=== PATIENT | female | born 1945 | race Caucasian/White ===

== ENCOUNTER 2020-01-04 12:45 | Emergency (ER) | payer MEDICARE, OTHER ==
[~2020-01-04] VITALS: Ht 162.5 cm; Wt 44.5 kg
--- NOTE | 2020-01-04 14:11 | ED Lower Extremity ---
General Chief Complaint: Lower Extremity Stated Complaint: L LEG PAIN Nursing Triage Note: PT TO TRIAGE BY WHEELCHAIR WITH COMPLAINT OF LEFT LEG PAIN. STATES SLIPPED DOWN STEPS ON SATURDAY. Nursing Sepsis Screen: No Definite Risk Source: patient Exam Limitations: no limitations History of Present Illness Date Seen by Provider: Jan 04, 2020 Time Seen by Provider: 14:09 Initial Comments To ER by wheelchair with complaints of left knee pain. This began on Saturday 3 days ago when she was going up her stairs, she began to fall and twisted. She had a popping sensation in her left leg, she has difficulty with fully extending the leg because of pain and swelling to the posterior calf just behind and below the knee joint, also has pain with bearing weight on the knee itself. She takes ibuprofen 600 mg 3 times a day every day for her chronic aches and pains. She smokes heavily. She informs me she does not want surgery even if it's broken. Onset: just prior to arrival Severity: moderate Pain/Injury Location: left knee Method of Injury: unknown Modifying Factors: Improves With Movement Allergies and Home Medications Allergies Coded Allergies: No Known Drug Allergies (Unverified , 01/04/20) Home Medications Tramadol HCl 50 Mg Tablet, 50 MG PO Q6H PRN for PAIN-MODERATE (5-7) Prescribed by: RAFA BATEMAN on 01/04/20 0248 Patient Home Medication List Home Medication List Reviewed: Yes Review of Systems Constitutional: see HPI EENTM: see HPI Respiratory: no symptoms reported Cardiovascular: no symptoms reported Genitourinary: no symptoms reported Musculoskeletal: see HPI Skin: no symptoms reported Psychiatric/Neurological: No Symptoms Reported Past Pektrsi-Pbfsbl-Yegitu Hx Patient Social History Alcohol Use: Past History Recreational Drug Use: No Smoking Status: Current Everyday Smoker Type Used: Cigarettes Recent Foreign Travel: No Contact w/Someone Who Travel: No Recent Infectious Disease Expo: No Recent Hopitalizations: No Immunizations Up To Date PED Vaccines UTD: Yes Seasonal Allergies Seasonal Allergies: No Past Medical History Surgeries: No Respiratory: No Neurological: No Genitourinary: No Gastrointestinal: No Musculoskeletal: Yes Chronic Back Pain Endocrine: No HEENT: No Cancer: No Psychosocial: No Integumentary: No Blood Disorders: No Physical Exam Vital Signs Vital Signs - First Documented 01/04/20 13:29 Temp 36.0 Pulse 93 Resp 20 B/P (MAP) 123/52 (75) Pulse Ox 95 O2 Delivery Room Air Capillary Refill : Less Than 3 Seconds Height, Weight, BMI Height: '" Weight: lbs. oz. kg; 16.00 BMI Method: General Appearance: WD/WN, no apparent distress HEENT: PERRL/EOMI, normal ENT inspection Respiratory: no respiratory distress, no accessory muscle use Hips: bilateral hip non-tender, bilateral hip normal inspection, bilateral hip normal range of motion Legs: left leg pain, left leg swelling (ecchymosis left calf with swelling left calf. Difficulty fully extending the leg at the knee.) Knees: bilateral knee non-tender, bilateral knee normal inspection, bilateral knee normal range of motion Ankles: bilateral ankle non-tender, bilateral ankle normal inspection, bilateral ankle normal range of motion Feet: bilateral foot non-tender, bilateral foot normal inspection, bilateral foot normal range of motion Neurologic/Psychiatric: alert, normal mood/affect, oriented x 3 Skin: normal color, warm/dry Progress/Results/Core Measures Results/Orders My Orders Orders - RAFA BATEMAN APRN Tibia/Fibula, Left, 2 Views (01/04/20 13:39) Knee, Left, 3 Views (01/04/20 13:39) Us Venous Lower Ext Lt (01/04/20 14:02) Tramadol Tablet (Ultram Tablet) (01/04/20 14:15) Medications Given in ED Current Medications Medications Dose Ordered Sig/Lexy Route Start Time Stop Time Status Last Admin Dose Admin Tramadol HCl 50 mg ONCE ONCE PO 01/04/20 14:15 01/04/20 14:16 DC 01/04/20 14:35 50 MG Vital Signs/I&O 01/04/20 13:29 Temp 36.0 Pulse 93 Resp 20 B/P (MAP) 123/52 (75) Pulse Ox 95 O2 Delivery Room Air Blood Pressure Mean: 75 Departure Communication (Admissions) Would suspect a gastrocnemius tear given the popping sensation, pain behind the knee and subsequent bruising, down the leg. Impression Primary Impression: Gastrocnemius tear Qualified Codes: S86.112A - Strain of other muscle(s) and tendon(s) of posterior muscle group at lower leg level, left leg, initial encounter Disposition: 01 HOME, SELF-CARE Condition: Stable Departure-Patient Inst. Decision time for Depature: 15:17 Patient Instructions: Muscle Strain Add. Discharge Instructions: 1. Ice packs to the area 2. Pain medication as directed 3. Follow-up with your doctor next week 4. All discharge instructions reviewed with patient and/or family. Voiced understanding. Scripts Tramadol HCl (Ultram) 50 Mg Tablet 50 MG PO Q6H PRN for PAIN-MODERATE (5-7), #20 TAB Prov: RAFA BATEMAN APRN 01/04/20 RAFA BATEMAN APRN Jan 04, 2020 14:11
[2020-01-04 14:56] VITALS: BP 123/52
[2020-01-04] MEDS ORDERED: TRAM-42 PO (15:18)
--- NOTE | 2020-01-04 15:19 | Diagnostic Imaging Report ---
PROCEDURE: US left lower extremity venous. TECHNIQUE: Multiple real-time grayscale images were obtained over the left lower extremity in various projections. Additional duplex Doppler and color Doppler images were also obtained. INDICATION: Pain and swelling. FINDINGS: The left common femoral, superficial femoral, popliteal veins and tibial veins demonstrate normal response to compression, augmentation, and Valsalva. There are no abnormal left lower extremity fluid collections or masses. IMPRESSION: No evidence of deep venous thrombosis in the left lower extremity. Dictated by: Dictated on workstation # [id number]
--- NOTE | 2020-01-04 15:27 | Diagnostic Imaging Report ---
INDICATION: Left knee pain post fall. AP, oblique, and lateral views of the left knee are obtained. No acute fracture or acute bony abnormality is seen. There is minimal medial joint space narrowing. There is a joint effusion in the suprapatellar recess. IMPRESSION: No acute fracture visualized. A joint effusion is present. There is minimal degenerative change in the medial compartment. Dictated by: Dictated on workstation # [id number]
--- NOTE | 2020-01-04 15:36 | Diagnostic Imaging Report ---
INDICATION: Left leg pain post injury. AP and lateral views of the left tibia and fibula are performed. No fracture or acute bony abnormality is seen. Joint effusion is noted in the left knee in the suprapatellar region. IMPRESSION: No acute fracture. Left knee joint effusion. Dictated by: Dictated on workstation # [id number]
--- OUTSIDE RECORDS SUMMARY | 2020-01-13 01:29 | XMS REPORT ---
Author Author Arianna Nieves Doctor Organization [facility] Address Unknown Phone Unavailable Care Team Providers Care Entry Level Automotive Technician Name Role Phone Migration, Doctor Unavailable Unavailable PROBLEMS Type Condition ICD9-CM Code [id number] Code Onset Dates Condition S tatus SNOMED Code Problem COPD exacerbation J44.1 Active 19 [id number] ALLERGIES No Information ENCOUNTERS Encounter Location Date Diagnosis [facility] [address] [id number] [id number] Dec, [facility] [address] [id number] [id number] Dec, COPD exacerbation J44.1 ; Tobacco abuse Z72.0 and Tobacco abuse counseling Z71.6 [facility] [address] [id number] [address] [place] [phone] Feb, [facility] [address] [id number] [address] [place] [phone] Feb, [facility] [address] [id number] [address] [place] [phone] May, [facility] [address] [id number] [address] [place] [phone] Jan, [facility] [address] [id number] [address] [place] [phone] Dec, [facility] [address] [id number] [address] [place] [phone] Nov, [facility] [address] [id number] [address] [place] [phone] Oct, [facility] [address] [id number] [address] [place] [phone] Oct, [facility] [address] [id number] [address] [place] [phone] Oct, [facility] [address] [id number] [address] [place] [phone] Oct, [facility] [address] [id number] [address] [place] [phone] Sep, [facility] [address] [id number] [address] [place] [phone] Sep, [facility] [address] [id number] [address] [place] [phone] Sep, IMMUNIZATIONS No Known Immunizations SOCIAL HISTORY Never Assessed REASON FOR VISIT [place] [place] CARE VITAL SIGNS MEDICATIONS Unknown Medications RESULTS No Results PROCEDURES No Known procedures INSTRUCTIONS MEDICATIONS ADMINISTERED No Known Medications
--- OUTSIDE RECORDS SUMMARY | 2020-01-13 01:29 | XMS REPORT ---
Author Author Arianna DURBIN [facility] Address [address] [place] [address] Care Team Providers Care Production Control Coordinator Name Role Phone ACOSTA DURBIN Unavailable PROBLEMS Type Condition ICD9-CM Code VTQ22-HC Code Onset Dates Condition S tatus SNOMED Code Problem COPD exacerbation J44.1 Active 19 [id number] ALLERGIES No Known Allergies SOCIAL HISTORY Never Assessed PLAN OF CARE Activity Details Follow Up 2 - 3 Days Reason:if s/s are not improving VITAL SIGNS Height 64 in 2017-01-15 Weight 99 lbs 2017-01-15 Temperature 96.5 degrees Fahrenheit 2017-01-15 Heart Rate 81 bpm 2017-01-15 Respiratory Rate 18 2017-01-15 Oximetry 94 % 2017-01-15 BMI 16.99 kg/m2 2017-01-15 Blood pressure systolic 138 mmHg 2017-01-15 Blood pressure diastolic 78 mmHg 2017-01-15 MEDICATIONS Medication Instructions Dosage Frequency Start Date End Date Duration S tatus PredniSONE 20 mg Orally Once a day 2 tablet 24h Dec, Dec, 05 days Active ProAir HFA 108 (90 Base) MCG/ACT Inhalation every 4 hrs 2 puffs as needed 4h Dec, Active Doxycycline Monohydrate 100 mg Orally every 12 hrs 1 tablet 12h Dec, Jan, 10 days Active RESULTS No Results PROCEDURES Procedure Date Ordered Result Body Site MEASURE BLOOD OXYGEN LEVEL Jan 15, 2017 IMMUNIZATIONS No Known Immunizations
--- OUTSIDE RECORDS SUMMARY | 2020-01-13 01:29 | XMS REPORT ---
Author Author Arianna Nieves Doctor Organization [facility] Address Unknown Phone Unavailable Care Team Providers Care Milk Tanker Driver Name Role Phone Migration, Doctor Unavailable Unavailable PROBLEMS Type Condition ICD9-CM Code KEF94-WN Code Onset Dates Condition S tatus SNOMED Code Problem COPD exacerbation J44.1 Active 19 [id number] ALLERGIES No Information ENCOUNTERS Encounter Location Date Diagnosis [facility] [address] [id number] [id number] Dec, [facility] [address] [id number] [id number] Dec, COPD exacerbation J44.1 ; Tobacco abuse Z72.0 and Tobacco abuse counseling Z71.6 [facility] [address] [id number] [address] [place] [phone] Feb, [facility] [address] [facility] [id number] [address] [place] [phone] Feb, [facility] [address] [facility] [id number] [address] [place] [phone] May, [facility] [address] [facility] [id number] [address] [place] [phone] Jan, [facility] [address] [id number] [address] [place] [phone] Dec, [facility] [address] [id number] [address] [place] [phone] Nov, [facility] [address] [id number] [address] [place] [phone] Oct, [facility] [address] [facility] [id number] [address] [place] [phone] Oct, [facility] [address] [id number] [address] [place] [phone] Oct, [facility] [address] [facility] [id number] [address] [place] [phone] Oct, [facility] [address] [facility] [id number] [address] [place] [phone] Sep, [facility] [address] [facility] [id number] [address] [place] [phone] Sep, [facility] [address] [facility] [id number] [address] [place] [phone] Sep, IMMUNIZATIONS No Known Immunizations SOCIAL HISTORY Never Assessed REASON FOR VISIT EMR-[facility] [place] PLAN OF CARE VITAL SIGNS MEDICATIONS Medication Instructions Dosage Frequency Start Date End Date Duration S tatus amitriptyline 25 mg 1 tablet by Oral route 1 time per daytake before bed Jan, Active PredniSONE 20 mg 2 tablet by Oral rou te 1 time per day for 5 day(s)Take 2 tablets daily for 5 days, then 1 tablet daily for 5 days. Jan, 012 Active RESULTS No Results PROCEDURES No Known procedures INSTRUCTIONS MEDICATIONS ADMINISTERED No Known Medications
--- OUTSIDE RECORDS SUMMARY | 2020-01-13 01:29 | XMS REPORT ---
Author Author Arianna Nieves Doctor Organization [facility] Address Unknown Phone Unavailable Care Team Providers Care Family Day Care Provider Name Role Phone Migration, Doctor Unavailable Unavailable PROBLEMS Type Condition ICD9-CM Code [id number] Code Onset Dates Condition S tatus SNOMED Code Problem COPD exacerbation J44.1 Active 19 [id number] ALLERGIES No Information ENCOUNTERS Encounter Location Date Diagnosis [facility] [address] [id number] [id number] Dec, [facility] [address] [id number] [id number] Dec, COPD exacerbation J44.1 ; Tobacco abuse Z72.0 and Tobacco abuse counseling Z71.6 [facility] [address] [id number] [address] [place] [phone] Feb, [facility] [address] [facility] [id number] [address] [place] [phone] Feb, [facility] [address] [facility] [id number] [address] [place] [phone] May, [facility] [address] [facility] [id number] [address] [place] [phone] Jan, [facility] [address] [id number] [address] [place] [phone] Dec, [facility] [address] [id number] [address] [place] [phone] Nov, [facility] [address] [id number] [address] [place] [phone] Oct, [facility] [address] [facility] [id number] [address] [place] [phone] Oct, [facility] [address] [id number] [address] [place] [phone] Oct, [facility] [address] [facility] [id number] [address] [place] [phone] Oct, [facility] [address] [facility] [id number] [address] [place] [phone] Sep, [facility] [address] [facility] [id number] [address] [place] [phone] Sep, [facility] [address] [facility] [id number] [address] [place] [phone] Sep, IMMUNIZATIONS No Known Immunizations SOCIAL HISTORY Never Assessed REASON FOR VISIT E[place] [place] PLAN OF CARE VITAL SIGNS MEDICATIONS Unknown Medications RESULTS No Results PROCEDURES No Known procedures INSTRUCTIONS MEDICATIONS ADMINISTERED No Known Medications
--- OUTSIDE RECORDS SUMMARY | 2020-01-13 01:29 | XMS REPORT ---
Author Author Arianna Nieves Doctor Organization [facility] Address Unknown Phone Unavailable Care Team Providers Care Desk Manager Name Role Phone Migration, Doctor Unavailable Unavailable PROBLEMS Type Condition ICD9-CM Code [id number] Code Onset Dates Condition S tatus SNOMED Code Problem COPD exacerbation J44.1 Active 19 [id number] ALLERGIES No Information ENCOUNTERS Encounter Location Date Diagnosis [facility] [address] [id number] [id number] Dec, [facility] [address] [id number] [id number] Dec, COPD exacerbation J44.1 ; Tobacco abuse Z72.0 and Tobacco abuse counseling Z71.6 [facility] [address] [id number] [address] [place] [phone] Feb, [facility] [address] [facility] [id number] [address] [place] [phone] Feb, [facility] [address] [facility] [id number] [address] [place] [phone] May, [facility] [address] [facility] [id number] [address] [place] [phone] Jan, [facility] [address] [id number] [address] [place] [phone] Dec, [facility] [address] [id number] [address] [place] [phone] Nov, [facility] [address] [id number] [address] [place] [phone] Oct, [facility] [address] [facility] [id number] [address] [place] [phone] Oct, [facility] [address] [id number] [address] [place] [phone] Oct, [facility] [address] [facility] [id number] [address] [place] [phone] Oct, [facility] [address] [facility] [id number] [address] [place] [phone] Sep, [facility] [address] [facility] [id number] [address] [place] [phone] Sep, [facility] [address] [facility] [id number] [address] [place] [phone] Sep, IMMUNIZATIONS No Known Immunizations SOCIAL HISTORY Never Assessed REASON FOR VISIT EMR-[facility] PLAN OF CARE VITAL SIGNS MEDICATIONS Unknown Medications RESULTS No Results PROCEDURES No Known procedures INSTRUCTIONS MEDICATIONS ADMINISTERED No Known Medications
--- OUTSIDE RECORDS SUMMARY | 2020-01-13 01:30 | XMS REPORT | Continuity of Care Document ---
Author Organization Unknown Address Unknown Phone Unavailable Allergies Active Description Code Type Severity Reaction Onset Reported/Identified Relationship to Patient Clinical Status Yes No Known Drug Allergies [id number] Drug Allergy Unknown N/A 01/04/2020 Medications There is no data. Problems Date Dx Coded Attending Type Code Diagnosis Diagnosed By 01/04/2020 RAFA BATEMAN APRN Ot F17.210 NICOTINE DEPENDENCE, CIGARETTES, UNCOMPL 01/04/2020 RAFA BATEMAN APRN Ot M79.605 PAIN IN LEFT LEG 01/04/2020 RAFA BATEMAN APRN Ot S86.112A STRAIN MUSC/TEND POST GRP AT LOW LEG LEV 01/04/2020 RAFA BATEMAN APRN Ot X50.1XXA OVEREXERTION FROM PROLONGED STATIC OR AW Procedures There is no data. Results There is no data. Encounters ACCT No. Visit Date/Time Discharge Status Pt. Type Provider Facility Loc./Unit Complaint [id number] 01/04/2020 12:48:00 020 14:56:00 DIS Emergency RAFA BATEMAN APRN [facility] ER L LEG PAIN
--- OUTSIDE RECORDS SUMMARY | 2020-01-13 01:30 | XMS REPORT ---
Author Author Arianna PEREZ [facility] Address [address] [place] [address] Care Team Providers Care Mysql Database Administrator Name Role Phone TRICE PEREZ Unavailable PROBLEMS Type Condition ICD9-CM Code SIY89-FH Code Onset Dates Condition S tatus SNOMED Code Problem COPD exacerbation J44.1 Active 19 [id number] ALLERGIES No Information SOCIAL HISTORY Never Assessed PLAN OF CARE VITAL SIGNS MEDICATIONS Unknown Medications RESULTS No Results PROCEDURES No Known procedures IMMUNIZATIONS No Known Immunizations
== END 2020-01-04 14:56 | disposition home or self-care (01) ==
LOC: EDUNIT# 12:45 → ER 12:48
DX: S86.112A Strain of other muscle(s) and tendon(s) of posterior muscle group at lower leg level, left leg, initial encounter (principal); F17.210 Nicotine dependence, cigarettes, uncomplicated; X50.1XXA Overexertion from prolonged static or awkward postures, initial encounter
CPT/HCPCS: 73562; 73590